=== PATIENT | female | born 1975 | race African-American/Black ===

== ENCOUNTER 2017-01-01 17:14 | Emergency (ER) | payer BC ==
--- NOTE | 2017-01-01 19:14 | ER Document Report ---
ED Medical Screen (RME) - General Chief Complaint: Abdominal Pain Stated Complaint: ABDOMINAL PAIN/DR SENT HER FOR U/S Time Seen by Provider: 01/01/17 19:12 Mode of Arrival: Ambulatory Information source: Patient Notes: This is a 41-year-old female presents to the emergency room with bright suprapubic/adnexal pain for the past day. Patient states it started early in the morning. Patient denies fever, chills. She denies vaginal discharge. TRAVEL OUTSIDE OF THE [place] IN LAST 30 DAYS: No - Related Data Allergies/Adverse Reactions: No Known Allergies Allergy (Verified 01/01/17 17:24) Past Medical History - Social History Chew tobacco use (# tins/day): No Frequency of alcohol use: None Drug Abuse: None - Past Medical History Cardiac Medical History: Reports: Hx Hypertension Renal/ Medical History: Denies: Hx Peritoneal Dialysis Past Surgical History: Reports: Hx Tubal Ligation - Immunizations Hx Diphtheria, Pertussis, Tetanus Vaccination: No Physical Exam - Vital signs Vitals: Temp Pulse Resp BP Pulse Ox 98.6 F 94 20 129/87 H 100 01/01/17 17:25 01/01/17 17:25 01/01/17 17:25 01/01/17 17:25 01/01/17 17:25 Course - Vital Signs Vital signs: Temp Pulse Resp BP Pulse Ox 98.6 F 94 12 129/87 H 100 01/01/17 17:25 01/01/17 17:25 01/01/17 19:00 01/01/17 17:25 01/01/17 17:25
--- NOTE | 2017-01-01 19:40 | ER Document Report ---
ED GI/ - General Chief Complaint: Abdominal Pain Stated Complaint: ABDOMINAL PAIN/DR SENT HER FOR U/S Time Seen by Provider: 01/01/17 19:12 Mode of Arrival: Ambulatory Notes: Patient is a 41-year-old female that comes emergency department for chief complaint of right lower pelvic pain that has been worsening throughout the day. She denies nausea or vomiting. She states the pain is constant and intermittently worse. She denies any vaginal bleeding or discharge, she states she is not sexually active. She denies dysuria, flank pain. Past medical history of tubal ligation, hypertension, denies any other medical history. She states her son also has symptoms of stomach upset, she states she has had about 5 episodes of nonbloody diarrhea. TRAVEL OUTSIDE OF THE [place] IN LAST 30 DAYS: No - Related Data Allergies/Adverse Reactions: No Known Allergies Allergy (Verified 01/01/17 17:24) Past Medical History - General Information source: Patient - Social History Smoking Status: Never Smoker Chew tobacco use (# tins/day): No Frequency of alcohol use: None Drug Abuse: None Lives with: Family Family History: Reviewed & Not Pertinent - Past Medical History Cardiac Medical History: Reports: Hx Hypertension Renal/ Medical History: Denies: Hx Peritoneal Dialysis Past Surgical History: Reports: Hx Tubal Ligation - Immunizations Hx Diphtheria, Pertussis, Tetanus Vaccination: No Review of Systems - Review of Systems Constitutional: No symptoms reported EENT: No symptoms reported Cardiovascular: No symptoms reported Respiratory: No symptoms reported Gastrointestinal: See HPI Genitourinary: See HPI Female Genitourinary: See HPI Musculoskeletal: No symptoms reported Skin: No symptoms reported Hematologic/Lymphatic: No symptoms reported Neurological/Psychological: No symptoms reported Physical Exam - Vital signs Vitals: Temp Pulse Resp BP Pulse Ox 98.6 F 94 20 129/87 H 100 01/01/17 17:25 01/01/17 17:25 01/01/17 17:25 01/01/17 17:25 01/01/17 17:25 Interpretation: Normal - General General appearance: Appears well, Alert In distress: None - Patient does not appear to be in distress, occasionally appears mildly uncomfortable - HEENT Head: Normocephalic, Atraumatic Eyes: Normal Conjunctiva: Normal Extraocular movements intact: Yes Eyelashes: Normal Pupils: PERRL Sinus: Normal Nasal: Normal Mouth/Lips: Normal Mucous membranes: Normal Pharynx: Normal Neck: Normal - Respiratory Respiratory status: No respiratory distress Chest status: Nontender Breath sounds: Normal. No: Decreased air movement, Wheezing Chest palpation: Normal - Cardiovascular Rhythm: Regular. No: Tachycardia Heart sounds: Normal auscultation, S1 appreciated, S2 appreciated Murmur: No - Abdominal Inspection: Normal Distension: No distension Bowel sounds: Normal Tenderness: Tender - There is generalized tenderness in the mid to lower abdomen and pelvic region, slightly worse generally in the right side, no guarding, rigidity, or rebound tenderness. No: Guarding Organomegaly: No organomegaly - Back Back: Normal, Nontender. No: Tender, CVA tenderness - Extremities General upper extremity: Normal inspection, Nontender, Normal ROM, Normal strength General lower extremity: Normal inspection, Nontender, Normal ROM, Normal strength - Neurological Neuro grossly intact: Yes Cognition: Normal Orientation: AAOx4 Errol Coma Scale Eye Opening: Spontaneous Errol Coma Scale Verbal: Oriented Errol Coma Scale Motor: Obeys Commands Britt Coma Scale Total: 15 Speech: Normal Motor strength normal: LUE, RUE, LLE, RLE Sensory: Normal - Psychological Associated symptoms: Normal affect, Normal mood - Skin Skin Temperature: Warm Skin Moisture: Dry Skin Color: Normal Course - Re-evaluation Re-evalutation: CBC unremarkable, chemistry shows some renal insufficiency with creatinine of 1.82, however this is improved in approximately baseline compared to prior. Urinalysis contaminated, only has a few white blood cells in it, no bacteria or nitrates. No dysuria or flank pain on exam. Patient appears mildly uncomfortable intermittently. She has generalized lower abdominal tenderness on examination with no guarding or rigidity. Examination is not suggestive of acute abdomen or acute appendicitis. Ultrasound showing normal ovaries, no free fluid, showing fibroid uterus. Patient declines a pelvic examination, however this is most likely appropriate as there is no free fluid, no discharge, and she is not sexually active. Discussed results with patient. She is familiar with fibroids because they run in the family. Because patient has elevated creatinine functioning she will be given pain medication instead, referred to PROGRAM TECHNICIAN, discussed return precautions in detail. Patient states understanding and agreement. - Vital Signs Vital signs: Temp Pulse Resp BP Pulse Ox 98.6 F 89 16 124/86 H 98 01/01/17 17:25 01/01/17 21:40 01/01/17 21:40 01/01/17 21:40 01/01/17 21:40 - Laboratory Result Diagrams: 01/01/17 19:20 01/01/17 19:20 Laboratory results interpreted by me: 01/01/17 01/01/17 01/01/17 19:15 19:20 19:20 RDW 14.3 H Seg Neutrophils % 87.7 H Lymphocytes % 5.5 L Carbon Dioxide 21 L Creatinine 1.82 H Est GFR ( Amer) 37 L Est GFR (Non-Af Amer) 30 L Ur Leukocyte Esterase SMALL H Discharge - Discharge Clinical Impression: Pelvic pain Uterine fibroid Qualifiers: Uterine leiomyoma location: unspecified location Qualified Code(s): D25.9 - Leiomyoma of uterus, unspecified Condition: Stable Disposition: HOME, SELF-CARE Additional Instructions: Stop drinking your workup indicates uterine fibroids, based on your examination and symptoms this is most likely the cause of your pain. Take the pain medication if needed, take the stool softener if needed along with these, follow -up closely with PROGRAM TECHNICIAN for additional management. Return to emergency department for any turning or worsening symptoms as detailed below. Observation for Appendicitis At this time, the abdominal pain does not seem to be appendicitis. Our next "test" will be passage of time. If you have early appendicitis, signs will appear to help us make the diagnosis. Most of the time, the pain goes away. In these cases, the pain is usually due to a virus in the lymph glands near the appendix, or due to an ovarian cyst or ovulation. Unless the pain is gone, you should come back for a recheck. This is usually done in 8 to 12 hours. Be sure you understand your follow-up instructions. Come back immediately if: (1) the pain becomes much more severe and sharply increases with movement or coughing, (2) vomiting becomes frequent, (3) there is blood in the vomit, urine, or bowel movements, (4) there are shaking chills or fever, or (5) the abdomen becomes more distended or swollen. Prescriptions: Docusate Sodium [Colace 100 mg Capsule] 100 mg PO DAILY #30 capsule Hydrocodone/Acetaminophen [[place] 5-325 mg Tablet] 1 - 2 tab PO ASDIR #15 tablet Forms: Return to Work Referrals: [facility] [Provider Group] - Follow up as needed
[2017-01-01 19:42] LABS: ABSOLUTE EOSINOPHILS # (AUTO) 0.1 10^3/uL (0.0-0.6); ABSOLUTE LYMPHOCYTES (AUTO) 0.5 10^3/uL (0.5-4.7); ABSOLUTE MONOCYTES (AUTO) 0.5 10^3/uL (0.1-1.4); ABSOLUTE NEUT (AUTO) 7.5 10^3/uL (1.7-8.2); BASOPHILS % (AUTO) 0.2 % (0-2); EOSINOPHILS % (AUTO) 1.2 % (0-6); HEMATOCRIT 37.5 % (36.0-47.0); HEMOGLOBIN 12.1 g/dL (12.0-15.5); HGB HCT DIFFERENCE -1.2; LYMPHOCYTES % (AUTO) 5.5 % (13-45); MEAN CORPUSCULAR HEMOGLOBIN 27.2 pg (27.0-33.4); MEAN CORPUSCULAR HGB CONC 32.4 g/dL (32.0-36.0); MEAN CORPUSCULAR VOLUME 84 fl (80-97); MONOCYTES % (AUTO) 5.4 % (3-13); RED BLOOD COUNT 4.45 10^6/uL (3.72-5.28); RED CELL DISTRIBUTION WIDTH 14.3 % (11.5-14.0); SEGMENTED NEUTROPHILS % (AUTO) 87.7 % (42-78); WHITE BLOOD COUNT 8.5 10^3/uL (4.0-10.5)
[2017-01-01 19:48] LABS: APPEARANCE,URINE CLOUDY; BILIRUBIN,URINE NEGATIVE (NEGATIVE); GLUCOSE, URINE NEGATIVE (NEGATIVE); KETONES,URINE NEGATIVE (NEGATIVE); LEUKOCYTE ESTERASE,URINE SMALL (NEGATIVE); NITRITE,URINE NEGATIVE (NEGATIVE); PROTEIN,URINE NEGATIVE (NEGATIVE); URINE SPECIFIC GRAVITY 1.013; UROBILINOGEN,URINE NEGATIVE mg/dL (<2.0)
[2017-01-01 19:57] LABS: ALANINE AMINOTRANSFERASE 37 U/L (9-52); ALKALINE PHOSPHATASE 56 U/L (38-126); ANION GAP 12 (5-19); ASPARTATE AMINO TRANSFERASE 25 U/L (14-36); BILIRUBIN,DIRECT 0.3 mg/dL (0.0-0.4); BILIRUBIN,TOTAL 0.5 mg/dL (0.2-1.3); BLOOD UREA NITROGEN 18 mg/dL (7-20); CALCIUM 9.1 mg/dL (8.4-10.2); CARBON DIOXIDE 21 mmol/L (22-30); CHLORIDE 107 mmol/L (98-107); CREATININE RESULT 1.82 mg/dL (0.52-1.25); GLUCOSE 95 mg/dL (75-110); POTASSIUM 4.3 mmol/L (3.6-5.0); SODIUM 139.8 mmol/L (137-145); TOTAL PROTEIN 7.1 g/dL (6.3-8.2)
--- NOTE | 2017-01-01 20:41 | RADIOLOGY REPORT (SQ) ---
EXAM DESCRIPTION: U/S NON OB PEL TV W/DOPPLER COMPLETED DATE/TIME: 01/01/2017 8:22 pm REASON FOR STUDY: right adnexal pain COMPARISON: None. TECHNIQUE: Dynamic and static grayscale images acquired of the pelvis via transvaginal approach and recorded on PACS. Additional selected color Doppler and spectral images recorded. LIMITATIONS: None. FINDINGS: UTERUS: Multiple fibroids, largest measuring 3.5 cm in the anterior fundus. ENDOMETRIAL STRIPE: No focal or generalized thickening. No masses. CERVIX: Small nabothian cysts. RIGHT OVARY: No abnormal masses. RIGHT OVARY DOPPLER: Normal arterial vascular flow without evidence for torsion. LEFT OVARY: 2.5 cm cyst. LEFT OVARY DOPPLER: Normal arterial vascular flow without evidence for torsion. FREE FLUID: None noted. OTHER: No other significant finding. MEASUREMENTS: UTERUS: 10.6 x 7.1 x 5.9 cm ENDOMETRIAL STRIPE: 7 mm RIGHT OVARY: 3.3 x 2.0 x 1.9 cm LEFT OVARY: 2.9 x 4.3 x 4.4 cm. IMPRESSION: Multiple fibroids, largest measuring 3.5 cm in the anterior fundus. Normal arterial vasc ular flow without evidence for torsion. No acute finding. TECHNICAL DOCUMENTATION: JOB ID: [id number] [employer]- All Rights Reserved
[2017-01-01] MEDS ORDERED: HYDROCODONE/ACETAMINOPHEN 5-325 MG TABLET PO ONE (20:49)
[2017-01-01] MEDS ORDERED: ONDANSETRON 4 MG TAB.RAPDIS PO ONE (20:49)
[2017-01-01] MEDS ORDERED: HYDROCODONE/ACETAMINOPHEN 5-325 MG 6 TAB/DSPK PO PRN (20:59)
[2017-01-01 21:54] VITALS: BP 124/86
== END 2017-01-01 21:53 | disposition home or self-care (01) ==
LOC: ER 17:14
DX: D25.9 Leiomyoma of uterus, unspecified (principal); N28.9 Disorder of kidney and ureter, unspecified; R10.2 Pelvic and perineal pain; I10 Essential (primary) hypertension; Z98.51 Tubal ligation status
CPT/HCPCS: 99284; 36415; 84702; 85025; 80053; 81001; 76830; 93976; S0119

== ENCOUNTER 2017-08-25 14:27 | Emergency (ER) | payer OTHER, BC ==
[2017-08-25 14:46] VITALS: BP 160/98
[2017-08-25] MEDS ORDERED: KETOROLAC TROMETHAMINE 60 MG/2 ML SDV IM ONE (15:58)
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
== END 2017-08-25 16:46 | disposition home or self-care (01) ==
LOC: ER 14:27
DX: T14.8XXA Other injury of unspecified body region, initial encounter (principal); R20.0 Anesthesia of skin; I10 Essential (primary) hypertension; V87.7XXA Person injured in collision between other specified motor vehicles (traffic), initial encounter
CPT/HCPCS: 99284; 96372; J1885

== ENCOUNTER 2019-07-14 15:40 | Emergency (ER) | payer OTHER, BC ==
[2019-07-14] MEDS ORDERED: IBUPROFEN 800 MG TABLET PO ONE (16:15)
[2019-07-14 16:16] VITALS: BP 148/104
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
== END 2019-07-14 19:20 | disposition home or self-care (01) ==
LOC: ER 15:40
DX: M25.571 Pain in right ankle and joints of right foot (principal); M79.661 Pain in right lower leg; V89.2XXA Person injured in unspecified motor-vehicle accident, traffic, initial encounter; I10 Essential (primary) hypertension; Z98.51 Tubal ligation status
CPT/HCPCS: 99283